=== PATIENT | female | born 1955 | race Caucasian/White ===

== ENCOUNTER 2023-01-28 11:58 | Emergency (ER) | payer MEDICARE, MEDICAID ==
[~2023-01-28] VITALS: Ht 152.4 cm; Wt 68.1 kg
[2023-01-28 12:15] VITALS: PULSE 107; RESP 26; O2SAT 91
[2023-01-28] MEDS ORDERED: DexAMETHasone SOD PHOS 10MG/1ML VIAL INJ IV ONE (12:15)
[2023-01-28] MEDS ORDERED: EPINEPHrine HCL 1 MG/1 ML AMP IM ONE (12:15)
[2023-01-28] MEDS ORDERED: FAMOTIDINE (10MG/ML) 2ML VL IV ONE (12:15)
[2023-01-28] MEDS ORDERED: diphenhdrAMINE HCL 50 MG/1 ML VL IV ONE (12:15)
[2023-01-28] MEDS ORDERED: SODIUM CHLORIDE 0.9% 1,000 ML IV ONE (12:45)
[2023-01-28] MEDS ORDERED: ALBUTEROL SULF 2.5 MG/0.5ML(0.5%) NEB SOLN NEB ONE (12:45)
[2023-01-28 13:38] LABS: Basophils # (auto) 0.1 10 ^3/uL (0-0.2); Basophils % (auto) 0.5 % (0.0-2.0); Eosinophils # (auto) 0.3 10 ^3/uL (0-0.8); Eosinophils % (auto) 2.3 % (0.0-7.0); Hematocrit 40.7 % (36.0-46.0); Hemoglobin 13.1 g/dL (12.2-16.2); Lymphocytes # (auto) 1.9 10 ^3/uL (0.4-5.4); Lymphocytes % (auto) 13.1 % (10.0-50.0); Mean Corpuscular Hgb Conc. 32.1 g/dL (32.0-36.0); Mean Corpuscular Volume 87.2 fL (80.0-100.0); Monocytes # (auto) 0.7 10 ^3/uL (0-1.3); Monocytes % (auto) 4.9 % (0.0-12.0); Neutrophils # (auto) 11.5 10 ^3/uL (1.6-8.6); Neutrophils % (auto) 79.2 % (37.0-80.0); Nucleated Red Blood Cells % 0.1 %; Red Blood Cells 4.67 10^6/uL (4.0-5.20); Red Cell Distribution Width 15.3 % (11.8-14.3); White Blood Cell 14.5 10^3/uL (4.4-10.8)
[2023-01-28 13:54] LABS: Partial Thromboplastin Time 24.1 SEC (24.5-34.5)
[2023-01-28 14:21] LABS: Albumin 3.8 g/dL (3.4-5.0); Calcium 9.2 mg/dL (8.5-10.1); Magnesium 2.1 mg/dL (1.6-2.6); Potassium 3.3 mmol/L (3.5-5.1)
[2023-01-28 14:26] LABS: BUN/Creatinine Ratio 19.4 (10.0-20.0); Bilirubin, Total 0.3 mg/dL (0.2-1.0); Total Protein 7.2 g/dL (6.4-8.2)
[2023-01-28] MEDS ORDERED: CETI10CA PO (16:09)
[2023-01-28] MEDS ORDERED: PRED20TA2 PO (16:09)
[2023-01-28] MEDS ORDERED: FAMO20TA10 PO (16:09)
[2023-01-28 16:22] VITALS: BP 131/84; PULSE 79; RESP 20; TEMP 98.4; O2SAT 97
== END 2023-01-28 16:26 | disposition home or self-care (01) ==
LOC: ER 11:58
DX: T78.1XXA Other adverse food reactions, not elsewhere classified, initial encounter (principal); T78.3XXA Angioneurotic edema, initial encounter; I10 Essential (primary) hypertension; J44.9 Chronic obstructive pulmonary disease, unspecified; X58.XXXA Exposure to other specified factors, initial encounter
CPT/HCPCS: 36415; 71045; 80053; 83735; 83880; 84484; 85025; 85610; 85730; 94640; 96361; 96372; 96374; 96375; 99284; J0171; J1100; J1200; J3490; J7030

== ENCOUNTER 2023-10-29 17:53 | Emergency (ER) | payer MEDICARE, MEDICAID ==
[~2023-10-29] VITALS: Ht 152.4 cm; Wt 70.2 kg
[~2023-10-29 17:53] MED LIST: CETI10CA PO; FAMO20TA10 PO; PRED20TA2 PO
[2023-10-29 23:31] VITALS: BP 122/85; PULSE 98; RESP 18; TEMP 98.2; O2SAT 96
[2023-10-29] MEDS ORDERED: ACET500T58 PO (23:32)
[2023-10-29] MEDS: ACETAMINOPHEN 325 MG TAB PO ONE (23:48)
== END 2023-10-29 23:54 | disposition home or self-care (01) ==
LOC: ER 17:53
DX: S50.01XA Contusion of right elbow, initial encounter (principal); J44.9 Chronic obstructive pulmonary disease, unspecified; K21.9 Gastro-esophageal reflux disease without esophagitis; I10 Essential (primary) hypertension; X58.XXXA Exposure to other specified factors, initial encounter; Y93.89 Activity, other specified; Y92.89 Other specified places as the place of occurrence of the external cause; Y99.8 Other external cause status
CPT/HCPCS: 73060; 73080